=== PATIENT | male | born 1945 | race Caucasian/White ===

== ENCOUNTER → 2016-07-05 | Outpatient (CLI) | payer MEDICARE, BC ==
[2016-07-05 13:13] LABS: BLOOD GAS BASE EXCESS -1.4 mmol/L (-2-2); BLOOD GAS CARBOXYHEMOGLOBIN 1.3 % (0-4); BLOOD GAS HCO3 23 mmol/L (22-26); BLOOD GAS METHEMOGLOBIN 1.1 % (0-2); BLOOD GAS O2 HGB SATURATION 93 % (90-100); BLOOD GAS OXYGEN CONTENT 16.5 Vol % (12.0-20.0); BLOOD GAS PCO2 41 mmHg (38-42); BLOOD GAS PO2 83 mmHg (61-120); BLOOD GAS TOTAL HGB 12.5 G/DL (12.0-16.0); CRITICAL VALUE NO; DRAW SITE RT RADIAL; FIO2 21 %; NUMBER OF ARTERIAL PUNCTURES 1; STAT NO; TEMP CORR TO 98.6; ULNAR PULSE PRESENT
--- NOTE | 2016-07-06 10:05 | RSPPFT ---
DATE OF PROCEDURE: 07/05/16 COMMENTS: Spirometry with FVC of 2.3 predicted 3.6, FEV1 of 1.7 predicted 2.4, FEV1/FVC ratio at 71% predicted 67%. There is mild limitation of flow at the level of the "small airways" with FEF 25-75 of 1.0 predicted 2.3 with some improvement post-bronchodilator. Air trapping is present with RV at 2.6 predicted 2.2. DLCO is within the predicted range. IMPRESSION: On the basis of the above, patient has a mild obstructive lung defect with some response to acutely inhaled bronchodilator.
== END ==
LOC: HRSP 11:58
PROVIDERS: ATTEND Internal Medicine Pulmonary Disease
DX: R06.02 Shortness of breath (principal)
CPT/HCPCS: 36600; 82805; 94620